=== PATIENT | male | born 1980 | race Two or more races ===

== ENCOUNTER 2016-04-24 17:53 | Emergency (ER) | payer OTHER ==
[~2016-04-24] VITALS: Ht 167.6 cm; Wt 122.2 kg
[~2016-04-24 17:53] MED LIST: Augmentin PO; BACTRIM,SEPT1 TABLET PO; K-DUR10 MEQ PO; NAPROXEN500 MG PO; PERCOCET 5/31 TABLET PO; PROMETHAZINE HC25 M1 PO; TYLENOL WITH C1 EACH PO; VICODIN 5-3001 EACH PO; VICODIN,LORT1 TABLET PO; ZANTAC300 MG PO; predniSONE PO
[2016-04-24] MEDS ORDERED: FLEXERIL10 MG PO (19:57)
[2016-04-24] MEDS ORDERED: MOTRIN800 MG PO (19:57)
[2016-04-24 22:09] VITALS: BP 131/69
== END 2016-04-24 22:11 | disposition home or self-care (01) ==
LOC: EME 17:53 → RME 17:53
DX: S16.1XXA Strain of muscle, fascia and tendon at neck level, initial encounter (principal); V49.50XA Passenger injured in collision with unspecified motor vehicles in traffic accident, initial encounter; Y92.410 Unspecified street and highway as the place of occurrence of the external cause; F17.200 Nicotine dependence, unspecified, uncomplicated; Z88.0 Allergy status to penicillin; Z88.6 Allergy status to analgesic agent
CPT/HCPCS: 71020; 71250; 99281; 99284